=== PATIENT | male | born 2000 ===

== ENCOUNTER 2021-09-24 12:34 | Emergency (ER) | payer BC ==
[2021-09-24] MEDS ORDERED: Diphtheria,Pertussis(Acell),Tetanus Vaccine 0.5 ML Syringe IM ONE (13:32)
--- NOTE | 2021-09-24 13:38 | EDM.PDOC ---
ED HPI GENERAL MEDICAL PROBLEM - General Chief Complaint: Upper Extremity Injury/Pain Stated Complaint: POSSIBLE FRACTURE ON BOTH HANDS Time Seen by Provider: 09/24/21 13:20 Source of Information: Reports: Patient History Limitations: Reports: No Limitations - History of Present Illness INITIAL COMMENTS - FREE TEXT/NARRATIVE: 20 yo male fell into a window yesterday with his hands breaking his fall and breaking the window. He has a small cut on his anterior L wrist and L wrist pain. The R wrist hurts minimally. He is not UTD on tetanus. He is quite sure there is no glass in his wound. Onset: Sudden Onset Date: 09/23/21 Duration: Day(s): (1), Constant Location: Reports: Upper Extremity, Left Quality: Reports: Ache Severity: Mild Improves with: Reports: Rest Worsens with: Reports: Movement Context: Reports: Trauma Associated Symptoms: Reports: No Other Symptoms Treatments [employer]: Reports: Other (see below) (cleaned wound) Hand Pain Score (Numeric/FACES): 10 - Related Data Allergies Allergy/AdvReac Type Severity Reaction Status Date / Time No Known Allergies Allergy Verified 09/24/21 12:46 Home Meds: Home Meds NK [No Known Home Meds] 09/24/21 [History] Social & Family History - Tobacco Use Tobacco Use Status *Q: Never Tobacco User - Recreational Drug Use Recreational Drug Use: No Review of Systems - Review of Systems Review Of Systems: See Below Constitutional: Reports: No Symptoms Musculoskeletal: Reports: Joint Pain (L wrist) Skin: Reports: Wound (anterior L wrist) Neurological: Reports: No Symptoms ED EXAM, GENERAL - Physical Exam Exam: See Below Exam Limited By: No Limitations General Appearance: Alert, WD/WN, No Apparent Distress Extremities: Normal Inspection, No Pedal Edema, Limited Range of Motion (very slight ROM reduction due to pain). No: Normal Range of Motion, Non-Tender, Pedal Edema, Increased Warmth Neurological: Alert, Oriented, CN II-XII Intact, Normal Cognition, No Motor/Sensory Deficits Psychiatric: Normal Affect, Normal Mood Skin Exam: Warm, Dry, Normal Color, No Rash, Wound/Incision (small laceration ant L wrist, about 0.4 cm. No palpable hard objects under the skin.). No: Intact Course - Vital Signs Last Recorded V/S: Last Vital Signs Temp 36.7 C 09/24/21 12:48 Pulse 68 09/24/21 12:48 Resp 12 09/24/21 12:48 BP 125/60 09/24/21 12:48 Pulse Ox 97 09/24/21 12:48 - Orders/Labs/Meds Orders: Active Orders 24 hr Category Date Time Status Vaccine to be Administered/Admin Charge [RC] ASDIRECTED Care 09/24/21 13:32 Active Wrist Comp Min 3V Lt [CR] Stat Exams 09/24/21 13:32 Taken Meds: Medications Discontinued Medications Generic Name Dose Route Start Last Admin Trade Name Freq PRN Reason Stop Dose Admin Diphtheria/Tetanus/Acell Pertussis 0.5 ml 09/24/21 13:32 09/24/21 13:58 Diphtheria,Pertussis(Acell),Tetanus Vaccine 0.5 Ml Syringe IM 09/24/21 13:33 0.5 ml .ONCE ONE Administration - Radiology Interpretation Free Text/Narrative:: L Wrist X-ray-neg - Re-Assessments/Exams Free Text/Narrative Re-Assessment/Exam: 09/24/21 14:08 Bacitracin, Bandage and ALEXANDRA applied to L wrist by RN Departure - Departure Time of Disposition: 14:15 Disposition: Home, Self-Care 01 Condition: Good Clinical Impression: Left wrist sprain Qualifiers: Encounter type: initial encounter Qualified Code(s): S63.502A - Unspecified sprain of left wrist, initial encounter - Discharge Information *PRESCRIPTION DRUG MONITORING PROGRAM REVIEWED*: Not Applicable *COPY OF PRESCRIPTION DRUG MONITORING REPORT IN PATIENT JORGE: Not Applicable Instructions: Wrist Sprain, Adult Referrals: PCP,None [Primary Care Provider] - Forms: ED Department Discharge Additional Instructions: Ibuprofen and/or acetaminophen for pain relief. ALEXANDRA wrap for support. Keep your wound clean. Recheck for signs of infection. Sepsis Event Note (ED) - Evaluation Sepsis Screening Result: No Definite Risk - Focused Exam Vital Signs: Vital Signs Temp Pulse Resp BP Pulse Ox 09/24/21 12:48 36.7 C 68 12 125/60 97 - My Orders Last 24 Hours: My Active Orders 09/24/21 13:32 Vaccine to be Administered/Admin Charge [RC] ASDIRECTED Wrist Comp Min 3V Lt [CR] Stat - Assessment/Plan Last 24 Hours: My Active Orders 09/24/21 13:32 Vaccine to be Administered/Admin Charge [RC] ASDIRECTED Wrist Comp Min 3V Lt [CR] Stat
[2021-09-24] MEDS ORDERED: Bacitracin Oint 1 GM U/D Packet TOP ONE (14:07)
--- NOTE | 2021-09-26 09:22 | CR ---
Wrist Comp Min 3V Lt CLINICAL HISTORY: Fall FINDINGS: There is no acute fracture or dislocation within the left wrist. Impression: Negative
== END 2021-09-24 14:31 | disposition home or self-care (01) ==
LOC: JP.ED 12:34
DX: S63.502A Unspecified sprain of left wrist, initial encounter (principal); Z23 Encounter for immunization; W18.39XA Other fall on same level, initial encounter
CPT/HCPCS: 73110-26-LT; 73110-LT; 90471; 90715; 99283-25

== ENCOUNTER 2021-11-28 10:05 | Emergency (ER) | payer BC ==
[2021-11-28] MEDS ORDERED: Ketorolac 30 MG/ML SDV IM ONE (10:29)
== END 2021-11-28 11:54 | disposition home or self-care (01) ==
LOC: JP.ED 10:05
DX: S93.402A Sprain of unspecified ligament of left ankle, initial encounter (principal); X50.1XXA Overexertion from prolonged static or awkward postures, initial encounter; Y93.67 Activity, basketball
CPT/HCPCS: 73610-LT; 96372; 99282; 99283; J1885

== ENCOUNTER 2021-11-29 12:35 | Emergency (ER) | payer BC ==
[2021-11-29 14:24] LABS: CORONAVIRUS COVID-19 NAA NEGATIVE (NEGATIVE)
== END 2021-11-29 22:10 ==
LOC: JP.ED 12:35
DX: T39.312A Poisoning by propionic acid derivatives, intentional self-harm, initial encounter (principal); Z20.822 Contact with and (suspected) exposure to COVID-19
CPT/HCPCS: 0241U; 36415; 80053; 80143; 80179; 80305-QW; 83605; 84443; 85025; 93005; 93010; 99284; 99285-25